=== PATIENT | female | born 1995 | race Caucasian/White ===

== ENCOUNTER 2017-11-18 18:14 | Emergency (ER) | payer SELFPAY ==
[~2017-11-18] VITALS: Ht 157.5 cm; Wt 54.4 kg
[2017-11-18 18:20] VITALS: BP_SYST 119
--- NOTE | 2017-11-18 18:20 | NUR ---
Patient returned since last visit here for nausea, decreased appetite. Prescribed meds "Are not working". Placed in bed 7.
[2017-11-18] MEDS ORDERED: PANTOPRAZOLE SODIUM 40 MG TAB PO ONE (19:00)
[2017-11-18] MEDS ORDERED: ONDANSETRON 4 MG ODT TAB PO ONE (19:00)
--- NOTE | 2017-11-18 19:00 | NUR ---
ER MD Hannah at bedside for medical evaluation.
--- NOTE | 2017-11-18 19:05 | NUR ---
Patient AOx4, ambulatory, presents to ER for complaint of nausea and decreased appetite x5 days. Patient was here on 11/15/17 for same complaints but now symptoms have increased. Patient states she is currently taking Pyridium. Patient has hx of anxiety.
[2017-11-18 19:32] LABS: BASOPHILS # (AUTO) 0.1 K/uL (0.0-0.2); BASOPHILS % (AUTO) 0.8 % (0.0-2.0); EOSINOPHILS % (AUTO) 0.4 % (0.0-4.0); HEMATOCRIT 38.3 % (36-48); HEMOGLOBIN 13.2 g/dL (12.0-16.0); LYMPHOCYTES # (AUTO) 1.7 K/uL (1.0-5.5); MEAN CORPUSCULAR HEMOGLOBIN 33 pg (27-31); MEAN CORPUSCULAR HGB CONC 34 % (32-36); MEAN CORPUSCULAR VOLUME 95 fL (79.0-98.0); MONOCYTES # (AUTO) 0.6 K/uL (0.0-1.0); MONOCYTES % (AUTO) 7.1 % (1.7-9.3); NEUTROPHILS # (AUTO) 6.1 K/uL (1.8-7.7); NEUTROPHILS % (AUTO) 71.7 % (40.0-70.0); PLATELET COUNT (AUTO) 219 K/uL (130-430); RED BLOOD CELL COUNT(AUTO) 4.03 MIL/uL (4.2-6.2); WHITE BLOOD COUNT (AUTO) 8.5 K/uL (4.8-10.8)
[2017-11-18 19:48] LABS: CALCIUM 9.5 mg/dL (8.4-11.0); CREATININE 0.83 mg/dL (0.55-1.30); POTASSIUM 3.9 mmol/L (3.5-5.1)
[2017-11-18 19:55] LABS: ALBUMIN 4.1 g/dL (3.4-4.8); TOTAL BILIRUBIN 0.5 mg/dL (0.0-1.0)
--- NOTE | 2017-11-18 20:00 | NUR ---
No adverse reactions noted after medication administration. Will continue to monitor.
[2017-11-18 20:07] LABS: BLOOD, URINE NEGATIVE (NEGATIVE); CLARITY/URINE SL HAZY (CLEAR); COLOR,URINE ORANGE (YELLOW); GLUCOSE,URINE TRACE (NEGATIVE); KETONES,URINE 1+ (NEGATIVE); LEUKOCYTE ESTERASE ,URINE 3+ (NEGATIVE); NITRITE, URINE POSITIVE (NEGATIVE); PROTEIN URINE 1+ (NEGATIVE)
[2017-11-18] MEDS ORDERED: CIPROFLOXACIN HCL 500 MG TABLET PO ONE (20:30)
[2017-11-18 20:42] LABS: BACTERIA,URINE FEW /HPF (None Seen); RBC,URINE 0-3 /HPF (0-3)
[2017-11-18 20:43] LABS: MUCUS,URINE None Seen /LPF (None Seen)
[2017-11-18 20:44] LABS: BILIRUBIN,URINE 1+ (NEGATIVE)
[2017-11-18 20:46] LABS: YEAST,URINE Moderate /HPF (None Seen)
[2017-11-18 20:49] LABS: BARBITURATE, URINE NEGATIVE (NEG <=200); BENZODIAZEPINE, URINE NEGATIVE (NEG <=150); CANNABINOID, URINE NEGATIVE (NEG <=50); COCAINE, URINE NEGATIVE (NEG <=150); METHAMPHETAMINES SCREEN,URINE NEGATIVE (NEG <=500); OPIATE, URINE NEGATIVE (NEG <=100); PHENCYCLIDINE SCREEN,URINE NEGATIVE (NEG <=25); UR TRICYCLIC ANTIDEPRESSANTS NEGATIVE (NEG <=300); URINE AMPHETAMINE NEGATIVE (NEG <=500); URINE METHADONE NEGATIVE (NEG <=200); URINE OXYCODONE SCREEN NEGATIVE (NEG <=100); URINE PROPOXYPHENE SCREEN NEGATIVE (NEG <=300)
[2017-11-18 20:53] VITALS: BP_SYST 121
--- NOTE | 2017-11-18 20:53 | NUR ---
Patient given written and verbal discharge instructions and verbalizes understanding. ER MD discussed with patient the results and treatment provided. Patient in stable condition. ID arm band removed. Rx of Cipro and Zofran given. Patient educated on pain management and to follow up with PMD. Pain Scale 0/10. Opportunity for questions provided and answered. Medication side effect fact sheet provided.
== END 2017-11-18 20:53 | disposition home or self-care (01) ==
LOC: SED 18:14
DX: N39.0 Urinary tract infection, site not specified (principal)
CPT/HCPCS: 36415; 80053; 80307; 81000; 81025; 83690; 85025; 87086; 99284; Q0162

== ENCOUNTER 2021-09-15 13:55 | Emergency (ER) | payer MEDICAID ==
[~2021-09-15] VITALS: Ht 157.5 cm; Wt 59.0 kg
[2021-09-15 14:35] VITALS: BP_SYST 128
--- NOTE | 2021-09-15 14:35 | NUR ---
PT TRIAGED AND PLACED IN ED WAITING ROOM FOR AVAIABLE BED, MD AWARE OF MSE NEEDS
--- NOTE | 2021-09-15 14:38 | NUR ---
PT CAME IN FROM HOME C/O SORE THROAT, COUGH AND FEVERS SINCE YESTERDAY. PT IS AMBULATORY, AAOX4, VSS
--- NOTE | 2021-09-15 14:50 | NUR ---
COVID AND STREP SWABS DONE AND SENT TO LAB
[2021-09-15] MEDS ORDERED: ZIT250 PO (15:03)
[2021-09-15] MEDS ORDERED: IBUP-1969 PO (15:03)
[2021-09-15 15:25] LABS: STREPTOCOCCUS A SCREEN (RAPID) NEGATIVE (NEGATIVE)
[2021-09-15 16:04] VITALS: BP_SYST 128
--- NOTE | 2021-09-15 16:04 | NUR ---
Patient given written and verbal discharge instructions and verbalizes understanding. ER MD discussed with patient the results and treatment provided. Patient in stable condition. ID arm band removed. Rx of IBUPFEN AND ZITHROMAX given. Patient educated on pain management and to follow up with PMD. Pain Scale 0/10. Opportunity for questions provided and answered. Medication side effect fact sheet provided.
== END 2021-09-15 14:35 | disposition home or self-care (01) ==
LOC: SED 13:55
DX: J02.9 Acute pharyngitis, unspecified (principal); Z20.822 Contact with and (suspected) exposure to COVID-19
CPT/HCPCS: 36415; 86403; 87081; 99283

== ENCOUNTER 2021-09-20 11:06 | Emergency (ER) | payer SELFPAY ==
[~2021-09-20] VITALS: Ht 157.5 cm; Wt 59.0 kg
[2021-09-20 11:06] VITALS: BP_SYST 123
[~2021-09-20 11:06] MED LIST: IBUP-1969 PO; ZIT250 PO
[2021-09-20] MEDS ORDERED: IBUP-1969 PO (14:21)
[2021-09-20 14:44] VITALS: BP_SYST 123
== END 2021-09-20 14:43 | disposition home or self-care (01) ==
LOC: SED 11:06
DX: J18.0 Bronchopneumonia, unspecified organism (principal); M94.0 Chondrocostal junction syndrome [Tietze]; J03.80 Acute tonsillitis due to other specified organisms; B97.89 Other viral agents as the cause of diseases classified elsewhere; Z79.899 Other long term (current) drug therapy; Z20.822 Contact with and (suspected) exposure to COVID-19
CPT/HCPCS: 71045; 87426; 87804 ×2; 93005; 99285; C9803; U0003; 36415

== ENCOUNTER 2023-12-06 09:35 | Emergency (ER) | payer OTHER ==
[~2023-12-06] VITALS: Ht 160 cm; Wt 59.0 kg
[2023-12-06 09:45] VITALS: BP_SYST 139; PULSE 109; RESP 18; TEMP 98.8; O2SAT 97
[2023-12-06] MEDS: IBUPROFEN 800 MG TABLET PO ONE (10:13)
[2023-12-06 10:55] LABS: INFLUENZA TYPE A Negative (NEGATIVE); INFLUENZA TYPE B NEGATIVE (NEGATIVE)
[2023-12-06] MEDS ORDERED: IBUP-1969 PO (11:09)
[2023-12-06] MEDS ORDERED: NIRM1TAB7 PO (11:09)
[2023-12-06 11:12] VITALS: BP_SYST 139; PULSE 109; RESP 18; TEMP 98.8; O2SAT 97
[2023-12-06 11:36] LABS: BILIRUBIN,URINE NEGATIVE (NEGATIVE); CLARITY/URINE CLEAR (CLEAR); COLOR,URINE YELLOW (YELLOW); GLUCOSE,URINE NEGATIVE (NEGATIVE); KETONES,URINE NEGATIVE (NEGATIVE); LEUKOCYTE ESTERASE ,URINE NEGATIVE (NEGATIVE); NITRITE, URINE NEGATIVE (NEGATIVE); PROTEIN URINE NEGATIVE (NEGATIVE); UROBILINOGEN,URINE 0.2 (0.2-1.0)
[2023-12-06 11:53] LABS: BLOOD, URINE TRACE (NEGATIVE)
[2023-12-06 12:15] LABS: BACTERIA,URINE RARE /HPF (None Seen); WBC,URINE 0-3 /HPF (0-3)
== END 2023-12-06 11:13 | disposition home or self-care (01) ==
LOC: SED 09:35
DX: U07.1 COVID-19 (principal); J40 Bronchitis, not specified as acute or chronic; G43.909 Migraine, unspecified, not intractable, without status migrainosus; F41.9 Anxiety disorder, unspecified; Z79.899 Other long term (current) drug therapy; Z79.2 Long term (current) use of antibiotics
CPT/HCPCS: 36415; 71045; 81000; 81001; 81015; 81025; 99284